=== PATIENT | female | born 1985 | race Caucasian/White ===

== ENCOUNTER 2018-06-20 19:50 | Emergency (ER) | payer OTHER, MEDICAID ==
[~2018-06-20] VITALS: Ht 170.2 cm; Wt 81.7 kg
[2018-06-20] MEDS ORDERED: HYDROCODONE-AP1 EAC6 PO (21:38)
[2018-06-20 21:52] VITALS: BP 122/78
== END 2018-06-20 21:52 | disposition home or self-care (01) ==
LOC: M.ERS 19:50
DX: S93.492A Sprain of other ligament of left ankle, initial encounter (principal); S80.211A Abrasion, right knee, initial encounter; F17.200 Nicotine dependence, unspecified, uncomplicated; Z88.1 Allergy status to other antibiotic agents; W01.0XXA Fall on same level from slipping, tripping and stumbling without subsequent striking against object, initial encounter; Y93.89 Activity, other specified; Y92.512 Supermarket, store or market as the place of occurrence of the external cause; Y99.8 Other external cause status

== ENCOUNTER 2018-07-27 13:25 | Emergency (ER) | payer OTHER, MEDICAID ==
[~2018-07-27] VITALS: Ht 170.2 cm; Wt 74.4 kg
[~2018-07-27 13:25] MED LIST: HYDROCODONE-AP1 EAC6 PO
[2018-07-27 13:39] VITALS: BP 107/69
== END 2018-07-27 13:55 | disposition home or self-care (01) ==
LOC: M.ERS 13:25
DX: M79.672 Pain in left foot (principal); F17.210 Nicotine dependence, cigarettes, uncomplicated; Z88.1 Allergy status to other antibiotic agents; Z88.8 Allergy status to other drugs, medicaments and biological substances